=== PATIENT | female | born 1965 | race Asian ===

== ENCOUNTER 2020-11-03 14:32 | Outpatient (CLI) | payer OTHER, SELFPAY ==
--- NOTE | ~2020-11-03 | MM_ITS ---
EXAMINATION: MM screening [facility] BI w pilar HISTORY: Screening TECHNIQUE: Craniocaudal and mediolateral oblique 3-D tomosynthesis images were obtained and synthetic 2-D images were generated. CAD analysis was submitted and interpreted. COMPARISON: Comparison to multiple prior studies sequentially, with oldest reviewed study dated 02/2015. BREAST PARENCHYMAL COMPOSITION: The breasts are heterogeneously dense, which may obscure small masses . FINDINGS: There is no evidence of suspicious mass, calcification, or architectural distortion to sugg est malignancy in either breast. There has been no suspicious interval change. IMPRESSION: 1. No mammographic evidence of malignancy. 2. Recommend routine screening mammography in one year. BI-RADS Category 1: Negative Reviewed, dictated and finalized at location A.
== END 2020-11-03 14:33 | disposition home or self-care (01) ==
LOC: ANHIMG 14:32
PROVIDERS: PCP Internal Medicine; Visit Provider Obstetrics & Gynecology
DX: Z12.31 Encounter for screening mammogram for malignant neoplasm of breast (principal)
CPT/HCPCS: 77063; 77067

== ENCOUNTER 2022-02-14 10:41 | Outpatient (CLI) | payer OTHER, SELFPAY ==
--- NOTE | 2022-02-14 11:22 | EST_ITS ---
Patient Info Name: Deonte Thomas Age: 56 years : 1965 Gender: Female Ht: 65 in Wt: 122 lbs BSA: 1.59 m2 Exam Date: 02/14/2022 12:09 PM Exam Location: [facility] Stress Patient Status: Outpatient Admit Date: 02/14/2022 Staff Ordering Physician: Chris Saldana DO Attending Provider: Chris Saldana DO Exercise Technologist: Josefina Cevallos RDCS Exercise Physician: Lars Alamo DO Exam Type: CA stress test treadmill Study Info Indications R06.02 - Shortness of breath A treadmill exercise stress test was performed. Summary 1. 1. Negative Robb exercise stress test for ischemic ST changes by ECG criteria. 2. 2. Good functional capacity, achieving 10 METs of workload. 3. 3. Baseline hypertension with hypertensive response to exercise. 4. 4. Appropriate HR response to exercise. 5. 5. Appropriate HR recovery at 1 minute post exercise. 6. 6. No imaging with stress testing. 7. 7. Patient informed of the above results. Protocol: Robb Stress ECG Details Stage: REST Duration (min): 3 min : 24 sec Speed (mph): 0.0 Grade (%): 0 HR (bpm): 67 SBP (mmHg): 173 DBP (mmHg): 91 METS: --- Stage: REST Duration (min): 4 min : 3 sec Speed (mph): 0.0 Grade (%): 0 HR (bpm): 74 SBP (mmHg): 173 DBP (mmHg): 91 METS: --- Stage: STAGE 1 Duration (min): 1 min : 0 sec Speed (mph): 1.7 Grade (%): 10 HR (bpm): 84 SBP (mmHg): 173 DBP (mmHg): 91 METS: --- Stage: STAGE 1 Duration (min): 2 min : 0 sec Speed (mph): 1.7 Grade (%): 10 HR (bpm): 94 SBP (mmHg): 173 DBP (mmHg): 91 METS: --- Stage: STAGE 1 Duration (min): 3 min : 0 sec Speed (mph): 1.7 Grade (%): 10 HR (bpm): 100 SBP (mmHg): 192 DBP (mmHg): 83 METS: --- Stage: STAGE 2 Duration (min): 1 min : 0 sec Speed (mph): 2.5 Grade (%): 12 HR (bpm): 108 SBP (mmHg): 192 DBP (mmHg): 83 METS: --- Stage: STAGE 2 Duration (min): 2 min : 0 sec Speed (mph): 2.5 Grade (%): 12 HR (bpm): 115 SBP (mmHg): 198 DBP (mmHg): 82 METS: --- Stage: STAGE 2 Duration (min): 3 min : 0 sec Speed (mph): 2.5 Grade (%): 12 HR (bpm): 119 SBP (mmHg): 198 DBP (mmHg): 82 METS: --- Stage: STAGE 3 Duration (min): 1 min : 0 sec Speed (mph): 3.4 Grade (%): 14 HR (bpm): 139 SBP (mmHg): 198 DBP (mmHg): 82 METS: --- Stage: STAGE 3 Duration (min): 1 min : 44 sec Speed (mph): 3.4 Grade (%): 14 HR (bpm): 151 SBP (mmHg): 198 DBP (mmHg): 82 METS: --- Stage: RECOVERY Duration (min): 0 min : 15 sec Speed (mph): 1.5 Grade (%): 0 HR (bpm): 153 SBP (mmHg): 198 DBP (mmHg): 82 METS: --- Stage: RECOVERY Duration (min): 1 min : 15 sec Speed (mph): 0.0 Grade (%): 0 HR (bpm): 120 SBP (mmHg): 233 DBP (mmHg): 50 METS: --- Stage:
== END 2022-02-14 10:42 | disposition home or self-care (01) ==
PROVIDERS: PCP Family Medicine; Visit Provider Family Medicine
DX: R06.02 Shortness of breath (principal)
CPT/HCPCS: 93017

== ENCOUNTER 2022-07-05 13:56 | Outpatient (CLI) | payer OTHER, SELFPAY ==
--- NOTE | ~2022-07-05 | MM_ITS ---
EXAMINATION: MM screening [facility] BI w pilar HISTORY: Screening mammogram TECHNIQUE: Craniocaudal and mediolateral oblique 3-D tomosynthesis images were obtained and synthetic 2-D images were generated. CAD analysis was submitted and interpreted. COMPARISON: 11/03/2020, 01/08/2019, 12/23/2018, 10/04/2016 BREAST PARENCHYMAL COMPOSITION: The breasts are heterogeneously dense, which may obscure small masses . FINDINGS: No suspicious mass, calcification, or architectural distortion are identified in either leonidas ast to suggest malignancy. There has been no suspicious interval change. IMPRESSION: 1. No mammographic evidence of malignancy. 2. Recommend routine screening mammography in one year. BI-RADS Category 1: Negative Reviewed, dictated and finalized at location A. ING INSPECTOR
== END 2022-07-05 13:57 | disposition home or self-care (01) ==
LOC: ANHIMG 13:58
PROVIDERS: PCP Family Medicine; Visit Provider Family Medicine
DX: Z12.31 Encounter for screening mammogram for malignant neoplasm of breast (principal)
CPT/HCPCS: 77063; 77067

== ENCOUNTER → 2022-08-02 13:18 | Outpatient (CLI) | payer OTHER, SELFPAY ==
--- NOTE | ~2022-08-02 | DEXA_ITS ---
Bone Density Report Name: JOE PARK Age: 57 Sex: Female Ethnicity: Date of : 1965 Indication: postmenopausal; screening for osteoporosis; Referring Provider: EMMIE ZAPATA Study: Bone densitometry was performed. Exam Date: August 02, 2022 Accession number: [id number] Bone Density: Region BMD T-score Z-score Classification AP Spine (L1-L4) 0.826 -2.0 -0.6 Osteopenia Femoral Neck (Left) 0.652 -1.8 -0.5 Osteopenia Total Hip (Left) 0.908 -0.3 0.6 Normal Femoral Neck (Right) 0.638 -1.9 -0.7 Osteopenia Total Hip (Right) 0.874 -0.6 0.3 Normal Total Hip Mean 0.891 -0.5 0.5 Normal World Health Organization criteria for BMD impression classify patients as: Normal (T-score at or above -1.0), Osteopenia (T-score between -1.0 and -2.5), or Osteoporosis (T-score at or below -2.5). 10-year Fracture Risk(1): Major Osteoporotic Fracture 4.3% Hip Fracture 0.5% Reported Risk Factors: [place] (), Neck BMD=0.638, BMI=21.3 (1) FRAX(R) Version 3.08. Fracture probability calculated for an untreated patient. Fracture probability may be lower if the patient has received treatment. Clinical Information Provided by Patient: Has used the following medications: Vitamin D, Calcium Patient maximum height was 65.0 Menopause Age: 47 Does not regularly consume dairy products Onset of menses at age 11 Number of children 1 Impression: The patient has low bone mass, based on the Total Spine T-score. The patient has an estimated ten-year risk of hip fracture of 0.5% and an estimated ten-year risk of major fracture of 4.3%, based on the WHO FRAX algorithm. Discussion: BONE DENSITY IS LOW AT ONE OR MORE SKELETAL SITES. This patient's lowest T-score is low at one or more skeletal sites. It meets the World Health Organization's (WHO) criteria for ?low bone mass? (T-score between -1.0 and -2.5). The patient's 10-year risk of fracture as calculated by FRAX is less than the threshold where pharmacological therapy is recommended by the National Osteoporosis Foundation (NOF). However, all treatment decisions require clinical judgment and consideration of individual patient factors, including patient preferences, comorbidities, previous drug use, risk factors not captured in the FRAX model (e.g., frailty, falls, vitamin D deficiency, increased bone turnover, interval significant decline in bone density) and possible under or overestimation of fracture risk by FRAX. The patient should follow a healthful lifestyle (good nutrition with adequate calcium and vitamin D, and appropriate weight-bearing exercise). Follow-Up: Consider repeating this study in 2 to 3 years to reassess this patient's status, or sooner if there is some new clinical indication. Reported by: JUAN DIEGO on 08/02/2022 1:54:00 PM.
== END ==
PROVIDERS: PCP Family Medicine; Visit Provider Advanced Practice Midwife
DX: Z13.820 Encounter for screening for osteoporosis (principal); Z78.0 Asymptomatic menopausal state; M85.88 Other specified disorders of bone density and structure, other site; M85.852 Other specified disorders of bone density and structure, left thigh; M85.851 Other specified disorders of bone density and structure, right thigh
CPT/HCPCS: 77080

== ENCOUNTER → 2022-11-22 11:22 | Outpatient (CLI) | payer SELFPAY ==
--- NOTE | ~2022-11-22 | MR_ITS ---
MRI of the thoracic spine Clinical History: Neck pain Technique: Axial T2-weighted and gradient images, and sagittal T1-weighted, T2-weighted, and STIR radha ges were acquired. Findings: There is no fracture or subluxation of the thoracic spine. Vertebral bodies maintain normal height and line. No bone marrow signal reality seen. No disc bulge or herniation seen at any thoracic level. No spinal canal stenosis or cord compression identified. No epidural mass or collection seen. Paravertebral soft tissues are unremarkable. Impression: Unremarkable exam. Reviewed, dictated and finalized at location M. Impression: Unremarkable exam.
== END ==
PROVIDERS: PCP Nurse Practitioner; Visit Provider Nurse Practitioner
DX: M54.6 Pain in thoracic spine (principal)
CPT/HCPCS: 72146

== ENCOUNTER → 2023-02-14 08:46 | Outpatient (CLI) | payer OTHER, SELFPAY ==
--- NOTE | ~2023-02-14 | US_ITS ---
Limited Abdominal Sonogram: Real-time sonographic imaging of the right upper quadrant was performed. Clinical History: Right upper quadrant pain Findings: The liver appears normal with no evidence of mass lesion or bile duct dilatation. Main por maisha vein demonstrates normal direction of flow. The gallbladder is well distended, and appears normal with no evidence of gallstone or wall thickening. The common bile duct measures 4 mm. The visualize d pancreas, aorta, and IVC are unremarkable. Impression: No significant abnormality seen. Reviewed, dictated and finalized at location M. Impression: No significant abnormality seen.
== END ==
PROVIDERS: PCP Internal Medicine; Visit Provider Clinical Nurse Specialist
DX: R10.11 Right upper quadrant pain (principal)
CPT/HCPCS: 76705

== ENCOUNTER 2023-05-20 09:10 | Emergency (ER) | payer OTHER, SELFPAY ==
[2023-05-20 09:23] VITALS: BP 139/58; PULSE 101; RESP 16; TEMP 37.9; O2SAT 97
--- NOTE | 2023-05-20 10:22 | ED.GENADULT ---
HPI - General Adult General Chief complaint: Upper Respiratory Infection Stated complaint: Chest pain;Cough;Sore Throat Source: patient Mode of arrival: ambulatory Limitations: no limitations History of Present Illness HPI narrative: Patient presents for evaluation of sick symptoms for last 2 days. Symptoms include sore throat, body aches, chills. She also has a cough which is productive in the morning becomes nonproductive later in the day. no fever, nausea, vomiting, diarrhea. No recent sick contacts to her knowledge. She tried taking tylenol for her symptoms. Related Data Home Medications Medication Instructions Recorded Confirmed ascorbic acid (vitamin C) 500 mg 500 mg PO DAILY 01/21/20 05/20/23 tablet cholecalciferol (vitamin D3) 50 50 mcg PO DAILY 02/10/23 05/20/23 mcg (2,000 unit) capsule Allergies Allergy/AdvReac Type Severity Reaction Status Date / Time No Known Allergies Allergy Verified 05/20/23 10:19 Review of Systems Review of Systems: CONSTITUTIONAL: Reports chills. Denies fever or sweats. EYES: Denies visual changes, redness, or discharge. ENT: Reports recent sore throat, which is improved. Denies rhinorrhea, congestion,or otalgia. CARDIOVASCULAR: Denies chest pain, palpitations, or edema. RESPIRATORY: Reports cough. Denies dyspnea. GASTROINTESTINAL: Denies abdominal pain, nausea, vomiting, or diarrhea. GENITOURINARY: Denies dysuria or hematuria. SKIN: Denies rash or itching. MUSCULOSKELETAL: Reports generalized body aches NEUROLOGIC: Denies headache, numbness, dizziness, or weakness. PSYCHIATRIC: Denies anxiety or depression. [facility] Past Medical History Medical History (Updated 05/20/23 @ 10:24 by SHIVA Yeager, LUZ) Ulcerative colitis Vaginal delivery 1991, , full term, male, 8#3 Surgical History Surgical History No pertinent past surgical history Family History Family History Father Family history of lung cancer, Onset Age: 71 Social History Social History Smoking status: Never smoker Alcohol intake: never Substance use: never Lack of Transportation: No Lack of Food: Never True Current Housing: I Have Housing Concerned About Future Housing: No Difficulty Paying Gas/Electric Bills: No Difficulty Paying for Meds: No Currently Unemployed: No Education: Master's Degree or Higher Difficulty w/ Childcare or Family Care: No Exam Narrative: GENERAL: Well-appearing, well-nourished, and in no acute distress. HEAD: Normocephalic, atraumatic. EYES: PERRLA and EOMI. ENT: Nares clear, no rhinorrhea or epistaxis. Mucous membranes moist. Posterior pharyngeal erythema without exudate. Uvula is midline. Bilateral TMs pearly green nonbulging NECK: Supple. No adenopathy or masses. No carotid bruits or JVD CHEST: Clear to auscultation. No respiratory distress. No wheezes rales or rhonchi HEART: Regular rate and rhythm. No murmur heard. Normal peripheral pulses. ABDOMEN: Soft, nontender, nondistended, normal active bowel sounds. EXTREMITIES: Normal range of motion. No edema. SKIN: Warm, dry, no rash. NEURO: No focal deficits. Alert and oriented x3. PSYCH: Normal mood and affect. Course Course Emergency Course: This is a 58-year-old female who presented for evaluation of sick symptoms. Strep positive. Will tx with augmentin. Mucinex DM for cough. Increase hydration. OTC agents for symptom management. Follow up with primary provider. Go to the ER for worsening symptoms. Pt in agreement with plan of care. Level of Care: Express Care Visit Vital Signs Vital signs: Vital Signs Temperature 37.9 C H 05/20/23 09:23 Pulse Rate 101 H 05/20/23 09:23 Respiratory Rate 16 05/20/23 09:23 Blood Pressure 139/58 L 05/20/23 09:2
== END 2023-05-20 10:23 | disposition home or self-care (01) ==
PROVIDERS: Emergency Provider Nurse Practitioner; PCP Internal Medicine
DX: J02.0 Streptococcal pharyngitis (principal); R05.1 Acute cough; Z20.822 Contact with and (suspected) exposure to COVID-19
CPT/HCPCS: 87426; 87804; 87880; 99213; C9803; G0463

== ENCOUNTER 2023-11-07 15:31 | Outpatient (CLI) | payer OTHER, SELFPAY ==
--- NOTE | ~2023-11-07 | MM_ITS ---
EXAMINATION: MM screening [facility] BI w pilar HISTORY: Screening mammogram TECHNIQUE: Craniocaudal and mediolateral oblique 3-D tomosynthesis images were obtained and synthetic 2-D images were generated. CAD analysis was submitted and interpreted. COMPARISON: 07/05/2022, 11/03/2020 bilateral screening mammogram examinations BREAST PARENCHYMAL COMPOSITION: The breasts are heterogeneously dense, which may obscure small masses . FINDINGS: There is no evidence of suspicious mass, calcification, or architectural distortion to sugg est malignancy in either breast. There has been no suspicious interval change. IMPRESSION: 1. No mammographic evidence of malignancy. 2. Recommend routine screening mammography in one year. BI-RADS Category 1: Negative Reviewed, dictated and finalized at location B.
== END 2023-11-07 15:32 | disposition home or self-care (01) ==
LOC: ANHIMG 15:37
PROVIDERS: PCP Internal Medicine; Visit Provider Advanced Practice Midwife
DX: Z12.31 Encounter for screening mammogram for malignant neoplasm of breast (principal)
CPT/HCPCS: 77063; 77067

== ENCOUNTER 2024-02-26 13:36 | Outpatient (CLI) | payer OTHER, SELFPAY ==
--- NOTE | ~2024-02-26 | XR_ITS ---
Clinical Indication: Cough PA and lateral views of the chest: Comparison: None Findings: The lungs are clear, without evidence of focal consolidation or pleural effusion. Cardiome diastinal silhouette is within normal limits. Bones and soft tissues are unremarkable. Impression: Normal chest. Reviewed, dictated and finalized at location . Impression: Normal chest.
== END 2024-02-26 13:37 | disposition home or self-care (01) ==
PROVIDERS: PCP Internal Medicine; Visit Provider Clinical Nurse Specialist
DX: R05.9 Cough, unspecified (principal)
CPT/HCPCS: 71046

== ENCOUNTER 2024-03-10 07:52 | Outpatient (CLI) | payer OTHER, SELFPAY ==
--- NOTE | ~2024-03-10 | CT_ITS ---
CT of the Abdomen and Pelvis: Indication: Abdominal pain Technique: 2.5 mm axial scans were obtained through the abdomen and pelvis following intravenous adm inistration of 100 cc of Omnipaque 350. Dose reduction technique was used on this scan by utilizing a utomated exposure control and iterative reconstruction technique. The dose-length product (DLP) was 2 31.88 mGy-cm. Findings: Scans through the lung bases are unremarkable. The liver, pancreas, gallbladder, adrenals and kidneys are within normal limits. There is a 2.1 cm hy podense splenic mass superiorly (axial image 44). No evidence of aortic aneurysm. No lymphadenopathy . No bowel obstruction or bowel wall thickening. There is no evidence to suggest acute appendicitis. Images through the pelvis were performed. Urinary bladder unremarkable. No pelvic mass seen. No ascit es. Impression: No acute abnormalities seen. 2.1 cm hypodense splenic mass, indeterminate. Consider follow-up MR to further assess as indicated. S plenic lesions statistically are most likely benign. Reviewed, dictated and finalized at location . Impression: No acute abnormalities seen. 2.1 cm hypodense splenic mass, indeterminate. Consider follow-up MR to further assess as indicated. Splenic lesions statistically are most likely benign.
== END 2024-03-10 07:53 | disposition home or self-care (01) ==
PROVIDERS: PCP Internal Medicine; Visit Provider Nurse Practitioner Family
DX: R74.8 Abnormal levels of other serum enzymes (principal); R16.1 Splenomegaly, not elsewhere classified
CPT/HCPCS: 74177; Q9967

== ENCOUNTER 2024-04-16 06:33 | Outpatient (CLI) | payer OTHER, SELFPAY ==
--- NOTE | ~2024-04-16 | MR_ITS ---
EXAMINATION: MR abdomen wo/w con DATE: 04/16/2024 07:32 INDICATION: Other diseases of spleen. TECHNIQUE: Magnetic resonance imaging (MRI) of the abdomen was performed without and with 12 mL Multi Umm intravenous contrast. COMPARISON: CT abdomen and pelvis 03/10/24, thoracic spine MRI 11/22/2022 FINDINGS: There are cysts in the liver measuring up to 7 mm. There is a 5 mm cyst in the spleen. There is a 2.1 cm hypoenhancing mass of increased T2-weighted signal intensity in the spleen, stable from 11/22/2022, likely benign. There is a 6 mm cystic lesion in the body of the pancreas that communicates with the main pancreatic duct. The main pancreatic duct is normal in caliber. The gallbladder, adrenal glands, and left kidney are normal. There is a 3 mm cyst in right kidney. There are no dilated loops of zachary l. There are no pathologically enlarged lymph nodes. There is no free intraperitoneal fluid. IMPRESSION: 1. 2.1 cm splenic mass, stable from 11/22/2022, likely a benign mass such as granulomatous disease, ham artoma, or hemangioma. 2. 6 mm low risk cystic lesion of the pancreas. The differential diagnosis includes pseudocyst, intra ductal papillary mucinous neoplasm (IPMN), mucinous cystic neoplasm (MCN), serous cystadenoma, and ne uroendocrine tumor. Consider abdomen MRI without and with contrast in one year. Reviewed, dictated and finalized at location B. IMPRESSION: 1. 2.1 cm splenic mass, stable from 11/22/2022, likely a benign mass such as gran ulomatous disease, hamartoma, or hemangioma. 2. 6 mm low risk cystic lesion of the pancreas. The differential diagnosis incl udes pseudocyst, intraductal papillary mucinous neoplasm (IPMN), mucinous cysti c neoplasm (MCN), serous cystadenoma, and neuroendocrine tumor. Consider abdome n MRI without and with contrast in one year.
== END 2024-04-16 06:34 | disposition home or self-care (01) ==
PROVIDERS: PCP Internal Medicine; Visit Provider Nurse Practitioner Family
DX: D73.89 Other diseases of spleen (principal); K86.2 Cyst of pancreas
CPT/HCPCS: 74183; A9577

== ENCOUNTER 2024-06-04 14:44 | Outpatient (CLI) | payer OTHER, SELFPAY ==
--- NOTE | ~2024-06-04 | US_ITS ---
EXAMINATION: US thyroid DATE: 06/04/2024 15:29 INDICATION: Abnormal results of thyroid function tests. TECHNIQUE: Multiple ultrasound images of the thyroid were obtained. COMPARISON: None. FINDINGS: The right thyroid lobe measures 5.4 x 1.4 x 1.9 cm. The left thyroid lobe measures 4.6 x 1.3 x 1.6 c m. In the left thyroid lobe, there is a 7 mm solid, hypoechoic, wider than tall nodule with smooth m argin without echogenic foci (TI-RADS TR4). IMPRESSION: 1. Small thyroid nodule, likely not clinically significant. No follow-up is needed. Reviewed, dictated and finalized at location A. ICAL RESEARCH COORDINATOR IMPRESSION: 1. Small thyroid nodule, likely not clinically significant. No follow-up is nee ded.
== END 2024-06-04 14:45 | disposition home or self-care (01) ==
PROVIDERS: PCP Internal Medicine; Visit Provider Clinical Nurse Specialist
DX: R94.6 Abnormal results of thyroid function studies (principal); E04.1 Nontoxic single thyroid nodule
CPT/HCPCS: 76536

== ENCOUNTER 2024-08-27 07:30 | Outpatient (CLI) | payer OTHER, SELFPAY ==
--- NOTE | ~2024-08-27 | DEXA_ITS ---
Bone Density Report Name: JOE PARK Age: 59 Sex: Female Ethnicity: White Date of : 1965 Indication: postmenopausal; screening for osteoporosis; Referring Provider: DEJUAN RHODES Study: Bone densitometry was performed. Exam Date: August 27, 2024 Accession number: [id number] Bone Density: Region BMD T-score Z-score Classification AP Spine(L1-L4) 0.776 -2.5 -1.0 Osteoporosis Femoral Neck (Left) 0.619 -2.1 -0.7 Osteopenia Total Hip (Left) 0.856 -0.7 0.3 Normal Femoral Neck (Right) 0.641 -1.9 -0.5 Osteopenia Total Hip (Right) 0.879 -0.5 0.5 Normal Total Hip Mean 0.867 -0.6 0.4 Normal World Health Organization criteria for BMD impression classify patients as: Normal (T-score at or above -1.0), Osteopenia (T-score between -1.0 and -2.5), or Osteoporosis (T-score at or below -2.5). 10-year Fracture Risk: FRAX not reported because: Some T-score for Spine Total or Hip Total or Femoral Neck at or below -2.5 Clinical Information Provided by Patient: Has used the following medications: Vitamin D Patient maximum height was 65 Menopause Age: 50 Onset of menses at age 11 Number of children 1 Impression: The patient has osteoporosis, based on the Total Spine T-score. Discussion: INCREASED RISK OF FRACTURE. BONE DENSITY IS UNDESIRABLY LOW AT ONE OR MORE SKELETAL SITES, CONSISTENT WITH POSTMENOPAUSAL OSTEOPOROSIS. This patient's lowest T-score meets the World Health Organization's (WHO) criteria for osteoporosis at one or more sites (T-score -2.5 or below). In untreated patients, the risk of osteoporotic fracture increases approximately two-fold for each 1.0 SD decrease in T-score. Low bone density is not the only risk factor for fracture; also consider factors such as patient's age, frailty or poor health, risk of falling, risk of injury, previous osteoporotic fracture, family history of osteoporosis, cigarette smoking, low body weight, etc. Not everyone with low bone mineral density has osteoporosis; osteomalacia and other metabolic bone disorders should also be considered. Patients who have osteoporosis should be evaluated for specific diseases and conditions (secondary causes) that may cause or contribute to bone loss. The [place] Association of Clinical Endocrinologists (AACE) and National Osteoporosis Foundation (NOF) recommend pharmacologic intervention for all postmenopausal women whose T-score is in this range. The patient should follow a healthful lifestyle (good nutrition with adequate calcium and vitamin D, and appropriate weight-bearing exercise). Follow-Up: Consider a repeat BMD and Vertebral Fracture Assessment (VFA) exam in 2 years or sooner if medically necessary, to reassess this patient's status. Reported by: SINDHU on 08/27/2024 8:10:00 AM. Reviewed, dictated and finalized at location A.
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
== END 2024-08-27 07:31 | disposition home or self-care (01) ==
LOC: ANHIMG 07:35
PROVIDERS: PCP Obstetrics & Gynecology Gynecology; Visit Provider Clinical Nurse Specialist
DX: M85.89 Other specified disorders of bone density and structure, multiple sites (principal); M81.0 Age-related osteoporosis without current pathological fracture; Z78.0 Asymptomatic menopausal state; Z13.820 Encounter for screening for osteoporosis
CPT/HCPCS: 77080

== ENCOUNTER 2025-04-12 00:39 | Day surgery (SDC) | payer OTHER, SELFPAY ==
[2025-04-01 11:31] VITALS: BMI 24.0
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
--- OUTSIDE RECORDS SUMMARY | 2025-04-12 00:42 | XMS_ITS | Encounter Summary ---
Author Organization [facility] Healthcare Address [address] [place] [address] Care Team Providers Care Deputy Chief Magistrate Name Role Phone Baron Montenegro DO Primary Care Provider Encounter Details Date Type Department Care Team (Latest Contact Info) Description 03/31/2025 Results Follow-Up [facility] [id number] [address] [place] [address] [facility] [address], [place] [address] Vitamin D 25 hydroxy, TSH Social History Tobacco Use Types Packs/Day Years Used Date Smoking Tobacco: Never Smokeless Tobacco: Never AUDIT-C Answer Date Recorded Q1: How often [...] on file Sexual Orientation Not on file documented as of this encounter Plan of Treatment Not on file documented as of this encounter Visit Diagnoses Not on filedocumented in this encounter Care Teams Deputy Chief Magistrate Relationship Specialty Start Date End Date Baron Montenegro DO PCP - General Internal Medicine 11/19/23 documented as of this encounter
[2025-04-12 06:20] VITALS: BP 123/65; PULSE 59; RESP 18; TEMP 36.3; O2SAT 98; BMI 24.5
[2025-04-12] MEDS: LACTATED RINGERS 1,000 ML 150 ML IV CONT (06:31)
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
--- NOTE | 2025-04-12 07:37 | S_PTH ---
PATIENT: Deonte Thomas LOC: [place] [facility]#:[id number] AGE/SX: 60/F ROOM: RE04/12/[address]: Sami Muniz MD : 1965 BED: DIS: 04/12/2025 SPEC #: [id number] RECD: 04/12/25 07:53 STATUS: EDEN REQ #: [id number] LISA: 04/12/25 07:[address]: Sami Muniz DEPT: [facility] Surgical RECD BY: Oli Mack ENTERED: 04/12/25 07:54 SP TYPE: Surgical OTHR DR: Amber Carreon, BYRON Tissues: A - Gastric Biopsy B - Small Bowel Bx Procedures: Hematoxylin and Eosin Stain Gross and Microscopic Level 4
[2025-04-12 07:39] VITALS: BP 105/50; PULSE 61; RESP 18; O2SAT 97
[2025-04-12 07:49] VITALS: BP 102/49; PULSE 60; RESP 21; O2SAT 97
[2025-04-12 07:59] VITALS: BP 101/50; PULSE 60; RESP 16; O2SAT 98
== END 2025-04-12 08:06 | disposition home or self-care (01) ==
PROVIDERS: PCP Clinical Nurse Specialist; Referring Provider Internal Medicine Gastroenterology; Visit Provider Internal Medicine Gastroenterology
PROC: 0DJ08ZZ Inspection of Upper Intestinal Tract, Via Natural or Artificial Opening Endoscopic (ICD-10-PCS; CPT 43239; principal; 2025-04-12 07:30)
DX: K29.50 Unspecified chronic gastritis without bleeding (principal); R53.83 Other fatigue; M85.88 Other specified disorders of bone density and structure, other site; Z87.19 Personal history of other diseases of the digestive system; Z80.1 Family history of malignant neoplasm of trachea, bronchus and lung
CPT/HCPCS: 43239; 88305; J2003; J2704; J7120

== ENCOUNTER 2025-04-21 08:15 | Outpatient (CLI) | payer OTHER, SELFPAY ==
--- NOTE | ~2025-04-21 | US_ITS ---
EXAMINATION: US soft tissue UE LT, 04/21/2025 8:17 MAMMOGRAPHY TECHNOLOGIST HISTORY: R22.32 - Localized swelling, mass and lump, left upper limb Comparison: None Technique: Prajapati-scale and color Doppler images were obtained. Findings: Correlating with the palpable area there is no abnormal mass or mass effect, no abnormal flow IMPRESSION: Unremarkable exam Reviewed, dictated and finalized at location P. OGRAPHY TECHNOLOGIST IMPRESSION: Unremarkable exam
== END 2025-04-21 08:16 | disposition home or self-care (01) ==
PROVIDERS: PCP Clinical Nurse Specialist; Visit Provider Clinical Nurse Specialist
DX: R22.32 Localized swelling, mass and lump, left upper limb (principal)
CPT/HCPCS: 76882

== ENCOUNTER 2025-04-25 07:31 | Outpatient (CLI) | payer OTHER, SELFPAY ==
--- NOTE | ~2025-04-25 | MR_ITS ---
EXAMINATION: MR abdomen wo/w con DATE: 04/25/2025 08:45 INDICATION: Pancreatic cyst TECHNIQUE: Magnetic resonance imaging (MRI) of the abdomen was performed without and with 11 mL Multihance intravenous contrast. Sequences included coronal T2- weighted SS-FSE, coronal and axial FS 2D-FIESTA, axial STIR FSE, axial T2- weighted SS-FSE, axial T2-weighted FS SS-FSE, axial diffusion-weighted SE, axial dual-echo T1-weighted FSPGR, and axial and coronal T1-weighted LAVA. Postcontrast axial T1-weighted LAVA images were obtained in a time course. Postcontrast coronal T1-weighted LAVA images were obtained. COMPARISON: MRI studies dated 04/16/2024 and 11/22/2022 FINDINGS: Heart size is normal. No pericardial or pleural effusion. There are few scattered small T2 hyperintense hepatic cysts the largest in the left hepatic lobe measuring 4-5 mm. No interval change in a likely benign 2.1 cm T2 hyperintense splenic lesion with delayed peripheral enhancement which very slowly fills in on the delayed imaging. Unchanged 6 mm likely benign T2 hyperintense nonenhancing cystic lesion at the body of the pancreas. Bilateral adrenal glands and kidneys are normal. Visualized portion of the bowels are unremarkable. No pathologically enlarged abdominal or upper pelvic lymphadenopathy. 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 IMPRESSION: 1. No interval change in a likely benign 6 mm cystic lesion at the body the pancreas. Recommend continued annual follow-up pre and postcontrast MRI. 2. Likely benign 2.1 cm T2 hyperintense splenic mass unchanged since 11/22/2022 which could represent a hemangioma, hamartoma or sequela of granulomatous disease. Reviewed, dictated and finalized at location A. OF HUMAN RESOURCES IMPRESSION: 1. No interval change in a likely benign 6 mm cystic lesion at the body the sandoval creas. Recommend continued annual follow-up pre and postcontrast MRI. 2. Likely benign 2.1 cm T2 hyperintense splenic mass unchanged since 11/22/2022 w hich could represent a hemangioma, hamartoma or sequela of granulomatous diseas e.
--- OUTSIDE RECORDS SUMMARY | 2025-04-25 07:34 | XMS_ITS | Clinical Summary ---
Author Organization [facility] Address [address] [place] [address] Care Team Providers Care Ambulatory Service Representative Name Role Phone RowenasavBaron booker DO Primary [...] Description 03/31/2025 Results Follow-Up [facility] [address] [address] Rose Lagunas MD Vitamin D 25 hydroxy, TSH 03/02/2025 1:15 PM CDT [facility] of [address] [address] Rose Lagunas MD Trish's thyroiditis [...] - 03/25/2025 10:11 AM CDT Performed at: [address] [place] [id number] Product Demonstrator: Giuseppe Rowley PhD, Phone: [phone] us Rose Lagunas MD LAB BLOOD ORDERABLES Final Resul t [facility] - * Vitamin D 25 hydroxy (03/24/2025 8:11 AM CDT) Vitamin D, 25-Hydroxy 57.0 30.0 - 100.0 ng/mL [facility] - 01 Comment: Vitamin D deficiency has been defined by the [place] of Medicine and an Endocrine Society practice guideline as a level of serum 25-OH vitamin D less than 20 ng/mL (1,2). The Endocrine Society went on to further define vitamin D insufficiency as a level between 21 and 29 ng/mL (2). 1. IOM ([place] of [employer]). 2010. Dietary reference intakes for calcium and D. [place]: The National Academies Press. 2. Spencer MF, Eliza NC, Anushka CHEN, et al. Evaluation, treatment, and prevention of vitamin D deficiency: an Endocrine Society clinical practice guideline. JCEM. 2010; 96(7):1911-30. Blood 03/24/2025 8:11 AM CDT 03/24/2025 Narrative [facility] - 03/25/2025 8:12 AM CDT Performed at: [address] [place] [address] [id number] Product Demonstrator: Giuseppe Rowley PhD, Phone: [phone] Result [facility] us Rose Lagunas MD LAB BLOOD ORDERABLES Final Resul t Performing Organization Address [facility] Co de Phone Number [facility] - 01 * T3, free (03/24/2025 8:11 AM CDT) Pathologist [facility] Triiodothyronin e,Free,Serum 3.0 2.0 - 4.4 pg/mL [facility] - 01 Blood 03/24/2025 8:11 AM CDT 03/24/2025 Narrative [facility] - 03/25/2025 10:11 AM CDT Performed at: [address] [place] [address] [id number] Product Demonstrator: Giuseppe Rowley PhD, Phone: [phone] Result [facility] us Rose Lagunas MD LAB BLOOD ORDERABLES Final Resul t Performing Organization Address [facility] de Phone Number [facility] - 01 * TSH (03/24/2025 8:11 AM CDT) [facility] TSH 3.430 0.450 - 4.500 uIU/mL [facility] - 01 Blood 03/24/2025 8:11 AM CDT 03/24/2025 Narrative [facility] - 03/25/2025 10:11 AM CDT Performed at: [address] [place] [address] [id number] Product Demonstrator: Giuseppe Rowley PhD, Phone: [phone] Result [facility] us Rose Lagunas MD LAB BLOOD ORDERABLES Final Resul t Performing Organization Address [facility] Co de Phone Number [facility] - 01 * T4, free (03/24/2025 8:11 AM CDT) Pathologist [facility] T4,Free(Direct) 1.19 0.82 - 1.77 ng/dL [facility] - 01 Blood 03/24/2025 8:11 AM CDT 03/24/2025 Narrative [facility] - 03/25/2025 10:11 AM CDT Performed at: 01 - [facility] [address] [id number] Product Demonstrator: Giuseppe Rowley PhD, Phone: [phone] us Rose Lagunas MD LAB BLOOD ORDERABLES Final Resul t [facility] - 01 from Last 3 Months Insurance [employer] Care Teams Ambulatory Service Representative Relationship Specialty Start Date End Date Yablonsky, Baron Martinez, DO PCP - General Internal Medicine 11/19/23
--- OUTSIDE RECORDS SUMMARY | 2025-04-25 07:34 | XMS_ITS | Encounter Summary ---
Author Organization [facility] Healthcare Address [address] [place] [address] Care Team Providers Care Yarn Sizer Name Role Phone Baron Montenegro DO Primary Care Provider Encounter Details Date Type Department Care Team (Latest Contact Info) Description 03/31/2025 Results Follow-Up [facility] [address] [address] [place] [address] [facility] [address], [place] [address] Vitamin D 25 hydroxy, TSH [...] on filedocumented in this encounter Care Teams Yarn Sizer Relationship Specialty Start Date End Date Baron Montenegro DO PCP - General Internal Medicine 11/19/23 documented as of this encounter
== END 2025-04-25 07:32 | disposition home or self-care (01) ==
PROVIDERS: PCP Clinical Nurse Specialist; Visit Provider Nurse Practitioner Family
DX: K86.2 Cyst of pancreas (principal); R16.1 Splenomegaly, not elsewhere classified; R74.8 Abnormal levels of other serum enzymes
CPT/HCPCS: 74183; A9577

== ENCOUNTER 2025-05-17 03:12 | Day surgery (SDC) | payer OTHER, SELFPAY ==
[2025-05-04 13:08] VITALS: BMI 20.3
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
--- OUTSIDE RECORDS SUMMARY | 2025-05-17 03:14 | XMS_ITS | Encounter Summary ---
Author Organization [facility] Address [address] [place] [address] Care Team Providers Care Staff Design Engineer Name Role Phone Baron Montenegro DO Primary Care Provider +1- [phone] Encounter Details Date Type Department Care Team (Latest Contact Info) Description 03/31/2025 Results Follow-Up [facility] [address] [place] [address] [address] [place] [address] [facility] [address] [address] Vitamin D 25 hydroxy, TSH [...] on filedocumented in this encounter Care Teams Staff Design Engineer Relationship Specialty Start Date End Date Baron Montenegro DO PCP - General Internal Medicine 11/19/23 documented as of this encounter
[2025-05-17 07:38] VITALS: BP 130/56; PULSE 73; RESP 12; TEMP 36.5; O2SAT 99; BMI 20.5
[2025-05-17] MEDS: LACTATED RINGERS 1,000 ML 150 ML IV CONT (07:58)
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
--- NOTE | 2025-05-17 08:56 | WPDHPUPDATE1 ---
History and Physical Update Update Date/Time: 05/17/25 08:56 History and Physical has been reviewed, including an updated exam of the patient. There are NO changes in the patient's condition. Risks, benefits, and alternatives have been discussed and questions answered. Patient agrees to proceed with procedure.
--- NOTE | 2025-05-17 09:09 | S_PTH ---
PATIENT: Deonte Thomas LOC: [place] Walter#:[id number] AGE/SX: 60/F ROOM: RE05/17/[address]: Sami Muniz MD : 1965 BED: DIS: 05/17/2025 SPEC #: [id number] RECD: 05/17/25 10:12 STATUS: EDEN REQ #: [id number] LISA: 05/17/25 09:[address]: Sami Muniz DEPT: [facility] Surgical RECD BY: Oli Mack ENTERED: 05/17/25 10:12 SP TYPE: Surgical OTHR DR: Amber Carreon, [place] Tissues: A - Colon Biopsy Procedures: Hematoxylin and Eosin Stain Gross and Microscopic Level 4
[2025-05-17 09:11] VITALS: BP 102/55; PULSE 59; RESP 20; O2SAT 98
[2025-05-17 09:21] VITALS: BP 108/65; PULSE 54; RESP 18; O2SAT 100
[2025-05-17 09:31] VITALS: BP 127/71; PULSE 60; RESP 18; O2SAT 100
== END 2025-05-17 09:37 | disposition home or self-care (01) ==
PROVIDERS: PCP Clinical Nurse Specialist; Referring Provider Nurse Practitioner Family; Visit Provider Internal Medicine Gastroenterology
PROC: 0DJD8ZZ Inspection of Lower Intestinal Tract, Via Natural or Artificial Opening Endoscopic (ICD-10-PCS; CPT 45378; principal; 2025-05-17 09:00)
DX: R19.4 Change in bowel habit (principal); K64.8 Other hemorrhoids
CPT/HCPCS: 45380; 88305; J2003; J2704; J7120

== ENCOUNTER 2025-05-31 10:39 | Outpatient (CLI) | payer OTHER, SELFPAY ==
--- NOTE | ~2025-05-31 | MM_ITS ---
EXAMINATION: MM screening paulina BI w pilar HISTORY: Screening TECHNIQUE: Craniocaudal and mediolateral oblique 3-D tomosynthesis images were obtained and synthetic 2-D images were generated. CAD analysis was submitted and interpreted. COMPARISON: Comparison to multiple prior studies sequentially, with oldest reviewed study dated , 10/04/2016 BREAST PARENCHYMAL COMPOSITION: Dense: The breasts are heterogeneously dense, which may obscure small masses. FINDINGS: There is no evidence of suspicious mass, calcification, or architectural distortion to suggest malignancy in either breast. IMPRESSION: 1. No mammographic evidence of malignancy. 2. Recommend routine screening mammography in one year. BI-RADS Category 1: Negative Reviewed, dictated and finalized at location A. MANAGER
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
--- OUTSIDE RECORDS SUMMARY | 2025-05-31 12:36 | XMS_ITS | Clinical Summary ---
Author Organization [facility] Address [address] [place] [address] Care Team Providers Care Contract Preparer Name Role Phone Unavailable Primary Care Provider Unavailabl e Social History Tobacco Use Types Packs/Day Years Used Date Smoking Tobacco: Never Assessed Comments Unknown Sex and Gender Information Value Date Recorded Sex Assigned at Not on file Legal Sex Female 10:32 PM EST Gender Identity Not on file Sexual Orientation Not on file Plan of Treatment Not on file Medical Devices Not on file
--- OUTSIDE RECORDS SUMMARY | 2025-05-31 12:36 | XMS_ITS | Encounter Summary ---
Author Organization [facility] Healthcare Address [address] [place] [address] Care Team Providers Care Aircraft Machinist Helper Name Role Phone Baron Montenegro DO Primary Care Provider +1- [phone] Encounter Details Date Type Department Care Team (Latest Contact Info) Description 03/31/2025 Results Follow-Up [facility] [address] [address] [place] [address] [facility] [address] [address] Vitamin D 25 hydroxy, TSH [...] on filedocumented in this encounter Care Teams Aircraft Machinist Helper Relationship Specialty Start Date End Date Baron Montenegro DO PCP - General Internal Medicine 11/19/23 documented as of this encounter
== END 2025-05-31 10:40 | disposition home or self-care (01) ==
LOC: ANHFOHIMG 10:40
PROVIDERS: PCP Internal Medicine; Visit Provider Obstetrics & Gynecology Gynecology
DX: Z12.31 Encounter for screening mammogram for malignant neoplasm of breast (principal)
CPT/HCPCS: 77063; 77067